=== PATIENT | female | born 1985 | race Two or more races ===

== ENCOUNTER 2017-10-15 23:26 | Emergency (ER) | payer OTHER ==
[~2017-10-15] VITALS: Ht 157.5 cm; Wt 57.4 kg
[2017-10-15 23:28] VITALS: BP 112/81
[2017-10-15] MEDS ORDERED: ESOM40CA PO (23:31)
[2017-10-18] MEDS ORDERED: ACET1TAB64 PO (21:08)
[2017-10-18] MEDS ORDERED: DICY10CA3 PO (21:08)
[2017-10-18] MEDS ORDERED: HYDR10TA4 PO (21:09)
[2017-10-18] MEDS ORDERED: SUMA25TA3 PO (21:09)
== END 2017-10-16 00:34 | disposition home or self-care (01) ==
LOC: ED 10-16 00:10
DX: S61.011A Laceration without foreign body of right thumb without damage to nail, initial encounter (principal); K20.9 Esophagitis, unspecified; W26.0XXA Contact with knife, initial encounter; Y93.89 Activity, other specified; Y92.009 Unspecified place in unspecified non-institutional (private) residence as the place of occurrence of the external cause; Y99.8 Other external cause status
CPT/HCPCS: 99281

== ENCOUNTER 2017-12-11 10:45 | Emergency (ER) | payer OTHER ==
[~2017-12-11] VITALS: Ht 157.5 cm; Wt 57.0 kg
[~2017-12-11 10:45] MED LIST: ACET1TAB64 PO; DICY10CA3 PO; ESOM40CA PO; HYDR10TA4 PO; SUMA25TA3 PO
[2017-12-11] MEDS ORDERED: LORazepam 1MG TABLET PO ONE (11:30)
[2017-12-11] MEDS ORDERED: LORazepam 1MG TABLET ONE (11:50)
[2017-12-11 12:17] LABS: BASOPHILS # (AUTO) 0.02 x10^3/uL (0-0.1); BASOPHILS % (AUTO) 0 % (0-1); EOSINOPHILS # (AUTO) 0.01 x10^3/uL (0-0.4); EOSINOPHILS % (AUTO) 0 % (1-7); LYMPHOCYTES # (AUTO) 2.92 x10^3/uL (1-3.4); LYMPHOCYTES % (AUTO) 35 % (22-44); MD NO; MEAN CORPUSCULAR HGB CONC 33.3 g/dL (32.4-35.8); MEAN CORPUSCULAR VOLUME 80.9 fL (80-100); MEAN PLATELET VOLUME 9.7 fL (7.4-10.4); MONOCYTES # (AUTO) 0.52 x10^3/uL (0.2-0.8); MONOCYTES % (AUTO) 6 % (2-9); NEUTROPHILS # (AUTO) 4.81 x10^3/uL (1.8-6.8); NEUTROPHILS % (AUTO) 58 % (42-75); PLATELET COUNT 327 x10^3/uL (130-400); RED BLOOD COUNT 4.01 x10^6/uL (3.82-5.3); RED CELL DISTRIBUTION WIDTH 16.6 % (9.6-15.2)
[2017-12-11 12:19] LABS: MICROSCOPIC AUTO
[2017-12-11 12:20] LABS: CULTURE INDICATED? YES
[2017-12-11 12:29] LABS: ALBUMIN 3.6 g/dL (3.4-5.0); ANION GAP 9 mmol/L (5-15); CALCIUM 8.1 mg/dL (8.5-10.1); CHLORIDE 110 mmol/L (98-107)
[2017-12-11 12:40] LABS: CREATININE 0.78 mg/dL (0.55-1.02); FREE T4 (FREE THYROXINE) 1.07 ng/dL (0.76-1.46)
[2017-12-11 14:53] VITALS: BP 124/68
== END 2017-12-11 14:55 | disposition home or self-care (01) ==
LOC: ED 13:53
DX: F41.1 Generalized anxiety disorder (principal)
CPT/HCPCS: 36415; 80048; 81001; 81025; 82040; 84439; 84443; 85025; 87086; 93005; 99285

== ENCOUNTER 2018-03-07 21:25 | Emergency (ER) | payer OTHER ==
[~2018-03-07] VITALS: Ht 157.5 cm; Wt 58.0 kg
--- NOTE | 2018-03-07 21:59 | NUR ---
pt to room from lobby
--- NOTE | 2018-03-07 22:01 | NUR ---
CENTER ABD PAIN, RIGHT FLANK PAIN X4 DAYS NAUSEA
[2018-03-07] MEDS ORDERED: RANI150T23 PO (22:08)
[2018-03-07] MEDS ORDERED: MORPHINE SULFATE 4 MG/ML, 1ML ONE (22:47)
[2018-03-07] MEDS ORDERED: ONDANSETRON 2MG/ML, 2ML ONE (22:47)
[2018-03-07 22:59] LABS: BASOPHILS # (AUTO) 0.03 x10^3/uL (0-0.1); BASOPHILS % (AUTO) 0 % (0-1); EOSINOPHILS # (AUTO) 0.13 x10^3/uL (0-0.4); EOSINOPHILS % (AUTO) 2 % (1-7); LYMPHOCYTES # (AUTO) 3.06 x10^3/uL (1-3.4); LYMPHOCYTES % (AUTO) 43 % (22-44); MD NO; MEAN CORPUSCULAR HEMOGLOBIN 28.4 pg (27.0-34.8); MEAN CORPUSCULAR HGB CONC 33.5 g/dL (32.4-35.8); MEAN CORPUSCULAR VOLUME 84.8 fL (80-100); MONOCYTES # (AUTO) 0.43 x10^3/uL (0.2-0.8); MONOCYTES % (AUTO) 6 % (2-9); NEUTROPHILS # (AUTO) 3.57 x10^3/uL (1.8-6.8); NEUTROPHILS % (AUTO) 50 % (42-75); PLATELET COUNT 252 x10^3/uL (130-400); RED BLOOD COUNT 4.45 x10^6/uL (3.82-5.3); RED CELL DISTRIBUTION WIDTH 16.5 % (9.6-15.2)
[2018-03-07] MEDS ORDERED: MORPHINE SULFATE 4 MG/ML, 1ML IVPush PRN (23:00)
[2018-03-07] MEDS ORDERED: ONDANSETRON 2MG/ML, 2ML IVPush ONE (23:00)
[2018-03-07 23:11] LABS: ALANINE AMINOTRANSFERASE 22 U/L (12-78); ALBUMIN 3.9 g/dL (3.4-5.0); ANION GAP 9 mmol/L (5-15); CALCIUM 8.7 mg/dL (8.5-10.1); CHLORIDE 109 mmol/L (98-107)
[2018-03-07 23:13] LABS: ALKALINE PHOSPHATASE 79 U/L (45-117); BILIRUBIN,TOTAL 0.1 mg/dL (0.2-1.0); TOTAL PROTEIN 7.3 g/dL (6.4-8.2)
--- NOTE | 2018-03-07 23:15 | NUR ---
urine was sent to lab and pt is in us now
[2018-03-07 23:25] LABS: HCG UR SG 1.019 (1.003-1.030)
[2018-03-07 23:28] LABS: MICROSCOPIC INDICATED
[2018-03-07 23:29] LABS: CULTURE INDICATED? NO
--- NOTE | 2018-03-07 23:29 | NUR ---
pt is in us now
[2018-03-08 00:01] VITALS: BP 118/81
--- NOTE | 2018-03-08 00:01 | NUR ---
pt stated no pain after rec'd morpnine iv [facility]ss stable still waiting for us result
== END 2018-03-08 00:49 | disposition home or self-care (01) ==
LOC: ED 23:22
DX: R10.13 Epigastric pain (principal); R10.12 Left upper quadrant pain
CPT/HCPCS: 36415; 76700; 80053; 81001; 81025; 83690; 85025; 86677; 96374; 96375; 99284; J2405

== ENCOUNTER 2019-03-28 15:24 | Emergency (ER) | payer OTHER ==
[~2019-03-28] VITALS: Ht 157.5 cm; Wt 57.8 kg
[~2019-03-28 15:24] MED LIST changes: +HYDR-2995 PO; -HYDR10TA4 PO; +RANI-467 PO
[2019-03-28 15:29] VITALS: BP 120/82
[2019-03-28 16:18] LABS: BASOPHILS # (AUTO) 0.02 x10^3/uL (0-0.1); BASOPHILS % (AUTO) 0 % (0-1); EOSINOPHILS # (AUTO) 0.11 x10^3/uL (0-0.4); EOSINOPHILS % (AUTO) 2 % (1-7); LYMPHOCYTES # (AUTO) 2.46 x10^3/uL (1-3.4); LYMPHOCYTES % (AUTO) 40 % (22-44); MD NO; MEAN CORPUSCULAR HEMOGLOBIN 26.9 pg (27.0-34.8); MEAN CORPUSCULAR HGB CONC 32.3 g/dL (32.4-35.8); MEAN CORPUSCULAR VOLUME 83.3 fL (80-100); MEAN PLATELET VOLUME 9.4 fL (7.4-10.4); MONOCYTES # (AUTO) 0.43 x10^3/uL (0.2-0.8); MONOCYTES % (AUTO) 7 % (2-9); NEUTROPHILS # (AUTO) 3.17 x10^3/uL (1.8-6.8); NEUTROPHILS % (AUTO) 51 % (42-75); PLATELET COUNT 301 x10^3/uL (130-400); RED CELL DISTRIBUTION WIDTH 16.3 % (9.6-15.2)
[2019-03-28 16:27] LABS: ALBUMIN 3.5 g/dL (3.4-5.0); ANION GAP 6 mmol/L (5-15); CALCIUM 8.7 mg/dL (8.5-10.1); CHLORIDE 110 mmol/L (98-107)
[2019-03-28 16:33] LABS: CREATININE 0.75 mg/dL (0.55-1.02)
== END 2019-03-28 17:34 | disposition left against medical advice (07) ==
LOC: ED 17:25
DX: R10.9 Unspecified abdominal pain (principal)
CPT/HCPCS: 36415; 76770; 80048; 82040; 84703; 85025; 99284